=== PATIENT | female | born 1930 | race Caucasian/White ===

== ENCOUNTER 2018-09-28 10:55 | Inpatient (IN) | payer MEDICARE ==
--- NOTE | 2018-09-28 11:10 | ED ---
Complex/Multi-Sys Presentation - HPI Summary HPI Summary: 88 year old F brought in by ambulance presenting to [facility] with a chief complaint of increasing shortness of breath since one week ago, worse since this morning. The patient rates the pain 0/10 in severity. Symptoms aggravated by bending over to clean. Symptoms alleviated by nothing. Patient has cough with green sputum production. Patient reports dysuria that comes and goes and she urinates quite often. Patient denies chest pain, nausea, vomiting, abdominal pain. Per nurse Jillian,who received EMS report, patient complains of increasing generalized weakness, decreased appetite, dizziness, and increased odor to urine. Per Jillian, patient was at [facility] last week for general illness. Per Jillian, patient's O2 stats were in the 70s when EMS arrived at pt's home and patient was given O2 via non-rebreather in ambulance. History of present illness is limited, as it is provided by patient who has dementia. Patient's immediate recall seems intact upon evaluation but patient has obvious dementia. Patient states "I think my father is still alive" when asked about family history. Pt is on Aricept and Namenda for dementia. Per daughter, Rex, who lives with pt, and was interviewed later when she presented to the ED, patient was given lactulose for constipation by her PCP. Daughter gave patient lactulose four days ago, and two days ago. Daughter believes that patient must have taken up to 40 ounces of lactulose between two days ago and now when she found the lactulose bottle this am. Daughter found patient sitting in stools this morning. Patient has had multiple stools while in ED. Daughter states that pt is O2 dependent with her COPD and wears 2L NC O2 constantly. Daughter states EMS found pt hypoxic this am because she was not wearing her O2. Daughter does not know if Pt is a CO2 retainer, has not been told that pt is. Daughter states pt has no hx CHF. Pt has HTN, hypothyroid and did not take her meds this am per daughter. Pt also has chronic back pain, and has an implanted stimulator, "that doesn't work " per daughter. Pt is on methadone for the chronic pain. Vital signs while in room: HR 80 bpm, BP 152/104 and 188/82. Home Medications Medication Instructions Recorded Confirmed Type Aspirin TAB* [Aspirin 325 MG TAB*] 325 mg PO DAILY 09/28/18 09/28/18 History Docusate CAP* [Colace Cap*] 100 mg PO BID 09/28/18 09/28/18 History Donepezil TAB* [Aricept 5 MG TAB*] 10 mg PO DAILY 09/28/18 09/28/18 History Levothyroxine TAB* [Synthroid TAB*] 88 mcg PO 0800 09/28/18 09/28/18 History Memantine TAB* [Namenda TAB*] 10 mg PO BID 09/28/18 09/28/18 History Methadone TAB* [Dolophine TAB*] 10 mg PO BID 09/28/18 09/28/18 History amLODIPine TAB* [Norvasc 5 mg TAB*] 10 mg PO DAILY 09/28/18 09/28/18 History - History Of Current Complaint Chief Complaint: EDWeakness Time Seen by Provider: 09/28/18 11:01 Hx Obtained From: Patient, Family/Director Of Architecture - daughter, EMS - via charge nurse, Jillian, Other: - Nurse Jillian reports EMS report to me Onset/Duration: Gradual Onset, Lasting Weeks - 1, Still Present, Worse Since - this morning Timing: Constant Severity Currently: Moderate Severity Initially: Moderate Location: Negative - pain Aggravating Factor(s): Nothing Alleviating Factor(s): Nothing Associated Signs And Symptoms: Positive: Weakness, SOB, Cough, Diarrhea - this am, Dysuria, Decreased Oral Intake. Negative: Chest Pain, Nausea, Vomiting, Abdominal Pain Related History: Recent Hospitalization - [facility] - Allergies/Home Medications Allergies/Adverse Reactions: Allergies Allergy/AdvReac Type Severity Reaction Status Date / Time doxycycline Allergy Unknown Verified 09/28/18 11:44 Reaction Details erythromycin base Allergy Unknown Verified 09/28/18 11:44 [From Erythrocin] Reaction Details ropinirole [From Requip] Allergy Agitation Verified 09/28/18 11:44 Sulfa (Sulfonamide Allergy Unknown Verified 09/28/18 11:44 Antibiotics) Reaction Details Home Medications: Home Medications Aspirin TAB* [Aspirin 325 MG TAB*] 325 mg PO DAILY 09/28/18 [History Confirmed 09/28/18] Docusate CAP* [Colace Cap*] 100 mg PO BID 09/28/18 [History Confirmed 09/28/18] Donepezil TAB* [Aricept 5 MG TAB*] 10 mg PO DAILY 09/28/18 [History Confirmed ] Levothyroxine TAB* [Synthroid TAB*] 88 mcg PO 0800 09/28/18 [History Confirmed 09/28/18] Memantine TAB* [Namenda TAB*] 10 mg PO BID 09/28/18 [History Confirmed 09/28/18] Methadone TAB* [Dolophine TAB*] 10 mg PO BID 09/28/18 [History Confirmed ] amLODIPine TAB* [Norvasc 5 mg TAB*] 10 mg PO DAILY 09/28/18 [History Confirmed 09/28/18] guaiFENesin ER TAB [Mucinex*] 60 mg PO DAILY 09/28/18 [History Confirmed ] traZODone TAB* [Desyrel TAB*] 50 mg PO BEDTIME 09/28/18 [History Confirmed 09/28] PMH/Surg Hx/FS Hx/Imm Hx Previously Healthy: No Endocrine/Hematology History: Reports: Hx Thyroid Disease Denies: Hx Sickle Cell Disease Respiratory History: Reports: Hx Chronic Obstructive Pulmonary Disease (COPD) GI History: Reports: Hx Hiatal Hernia Musculoskeletal History: Reports: Hx Arthritis, Hx Back Problems, Other Musculoskeletal History - spinal stenosis Sensory History: Reports: Hx Hearing Aid EENT History: Reports: Hx Hearing Problem Neurological History: Reports: Hx Dementia, Other Neuro Impairments/Disorders - Left back implanted neurovascular stimulator- off at this time Psychiatric History: Reports: Hx Depression - Cancer History Cancer Type, 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 Negative: Abdominal Pain, Vomiting, Nausea Positive: dysuria, frequency Musculoskeletal: Negative Skin: Negative Positive: Weakness - generalized Psychological: Normal All Other Systems Reviewed And Are Negative: Yes Physical Exam - Summary Physical Exam Summary: Appearance: Ill-appearing, no pain distress, well-nourished Skin: Warm, color reflects adequate perfusion, dry Head: Normal Head/Face inspection, atraumatic Eyes: Conjunctiva clear, EOMI ENT: Edentulous Neck: Supple, no nodes, no JVD Respiratory: Lungs clear, normal breath sounds, no respiratory distress Cardio: RRR, No murmur, pulses normal, brisk capillary refill Abdomen: Soft, nontender. Patient wears adult briefs. Patient reports suprapubic generalized pain upon palpation Bowel sounds: Present Musculoskeletal: Strength Intact/ROM intact, no calf tenderness, no edema. Back: Left lateral lumbar area has a device implanted Psychological: Normal Neuro: Alert, muscle tone normal, no focal deficit Triage Information Reviewed: Yes Vital Signs On Initial Exam: Initial Vitals Temp Pulse Resp BP Pulse Ox 98.5 F 78 19 152/104 93 09/28/18 11:00 09/28/18 11:00 09/28/18 11:00 09/28/18 11:00 09/28/18 11:00 Vital Signs Reviewed: Yes Diagnostics - Vital Signs Vital Signs Temp Pulse Resp BP Pulse Ox 09/28/18 11:00 98.5 F 78 19 152/104 93 - Laboratory Result Diagrams: 09/29/18 06:35 09/29/18 06:35 Lab Statement: Any lab studies that have been ordered have been reviewed, and results considered in the medical decision making process. - Radiology CXR Radiology Interpretation Completed By: Radiologist Summary of Radiographic Findings: COPD. ED physician has reviewed this report. - EKG 1214 Cardiac Rate: NL - 84 BPM EKG Rhythm: Sinus Rhythm ST Segment: Non-Specific Ectopy: None EKG Comparison: No Significant Change - Compared to 05/09/15 Summary of EKG Findings: Nml AV/IV CT, nml QTc, left axis, LVH. No acute changes. Re-Evaluation - Re-Evaluation First Eval Re-Evaluation Time: 14:53 Comment: Patient has no C/O. Has had multiple episodes of stool incontinence and diarrhea. Sent for stool studies. HR 72 BPM, BP 169/82. The daughter is tearful. She is upset with wait time and "poking and proding her mother." She doesn't want patient's information told to other family members. Patient's daughter Rex, is taken to registration to update demographic information. Registration is unable to put note that family members cannot be given patient information. Complex Multi-Symp Course/Dx Course Of Treatment: Reviewed nurses note. Patient medications reviewed this visit. Allergies noted. High blood pressure noted. CXR shows COPD, no evidence of infiltrate of CHF. EKG shows SR, no changes compared to prior on 05/09/15. Respiratory therapy unable to obtain ABG. Bloodwork remarkable for lactic acid 2.5. Urinalysis remarkable for UTI. Aware of lactic acid 2.5 at 13:06. Patient meets SIRS criteria with tachypnea, elevated white count, and elevated lactic acid. Blood cultures were sent. Patient was given ceftriaxone for presumed urinary source and possible respiratory source. Patient is allergic to erythromycin so will not give azithromycin. Patient was not given 30 cc/kg IV fluids for possible sepsis due to elevated BNP (653) and hypertension. Spoke with Dr. Pressley, hospitalist, regarding admission. Dr. Pressley agrees to admit patient. Patient and patient's daughter are agreeable to this plan. - Diagnoses Differential Diagnoses/HQI/PQRI: Metabolic Abnormality, Sepsis, Urinary Tract Infection, Other - pneumonia, CHF Provider Diagnoses: Hypoxia, COPD (chronic obstructive pulmonary disease), Hypertension, poor control, Dementia, Shortness of breath, UTI (urinary tract infection), Sepsis, CHF (congestive heart failure), Hypomagnesemia, Diarrhea - Physician Notifications Discussed Care Of Patient With: Param Pressley Time Discussed With Above Provider: 15:05 Instructed by Provider To: Other - Dr. Pressley, hospitalist, agrees to admit patient. - Critical Care Time Critical Care Time: 30-74 min - 30 minutes Discharge - Sign-Out/Discharge Documenting (check all that apply): Patient Departure - Admit Patient Received Moderate/Deep Sedation with Procedure: No - Discharge Plan Condition: Stable Disposition: ADMITTED TO [facility] - Billing Disposition and Condition Condition: STABLE Disposition: Admitted to [facility] - Attestation Statements Document Initiated by Scribe: Yes Documenting Scribe: Rocio Song Provider For Whom Scribe is Documenting (Include Credential): Sonya Hairston MD Scribe Attestation: I, Rocio Song, scribed for Sonya Hairston MD on 09/29/18 at 2022. Scribe Documentation Reviewed: Yes Provider Attestation: The documentation as recorded by the jaylenibe, Rocio Song accurately reflects the service I personally performed and the decisions made by me, Sonya Hairston MD Status of Scribe Document: Viewed
[2018-09-28 12:37] LABS: ABS Basophils 0 10^3/ul (0-0.2); ABS Eosinophils 0 10^3/ul (0-0.6); ABS Lymphocytes 0.6 10^3/ul (1.0-4.8); ABS Monocytes 0.7 10^3/ul (0-0.8); ABS Nucleated RBC 0 10^3/ul; Eosinophil % 0 %; Hematocrit 40 % (35-47); Hemoglobin 13.2 g/dl (12.0-16.0); Lymphocyte % 3.7 %; Mean Corpuscular HGB Conc 33 g/dl (31-36); Mean Corpuscular Hemoglobin 28 pg (27-31); Mean Corpuscular Volume 86 fL (80-97); Mean Platelet Volume 8.4 fL (7.4-10.4); Nucleated Red Blood Cells % 0; Platelet Count 244 10^3/ul (150-450); Red Blood Count 4.66 10^6/ul (4.00-5.40); Red Cell Distribution Width 15 % (10.5-15); White Blood Count 17.4 10^3/ul (3.5-10.8)
[2018-09-28 12:51] LABS: Activated Partial Thrombo Time 30.6 seconds (26.0-36.3); INR 1.14 (0.77-1.02)
[2018-09-28 12:55] LABS: Albumin 4.3 g/dL (3.2-5.2); Albumin/Globulin Ratio 1.5 (1-3); BUN/Creatinine Ratio 30.2 (8-20); C Reactive Protein 6.21 mg/L (<8.01); Calcium 9.7 mg/dL (8.6-10.3); EGFR African American 108.4 (>60); EGFR Non-African American 89.6 (>60); Globulin 2.9 g/dL (2-4); Magnesium 1.7 mg/dL (1.9-2.7); Total Bilirubin 0.9 mg/dL (0.2-1.0); Total Protein 7.2 g/dL (6.4-8.9)
[2018-09-28 13:17] LABS: TSH (Thyroid Stimulating Horm) 0.72 mcIU/mL (0.34-5.60)
[2018-09-28 13:55] LABS: Urine Appearance Cloudy; Urine Bacteria Absent (Absent); Urine Bilirubin Negative (Negative); Urine Blood 1+ (Negative); Urine Color Amber; Urine Glucose Negative (Negative); Urine Ketones Trace (Negative); Urine Nitrite Negative (Negative); Urine Protein 1+(30 mg/dL) (Negative); Urine Red Blood Cell Trace(0-2/hpf) (Absent); Urine Specific Gravity 1.016 (1.010-1.030); Urine Squamous Epithelial Cell Present (Absent); Urine Urobilinogen Positive (Negative); Urine White Blood Cell 2+(11-20/hpf) (Absent)
[2018-09-28] MEDS ORDERED: cefTRIAXone(*) 1 GM in NS 0.9% 50 ML* 50 ML IVPB ONE ×2 (15:10→17:00)
[2018-09-28] MEDS ORDERED: Magnesium Sulfate IV* 3 GM in NS 0.9% 100 ML* 100 ML IVPB ONE (16:33)
[2018-09-28] MEDS ORDERED: NS 0.9% 1000 ML** 1,000 ML IV.FLUID IV ONE (17:20)
[2018-09-28] MEDS ORDERED: NS 0.9% 1000 ML** 1,000 ML IV SCH (17:30)
[2018-09-28] MEDS: amLODIPine TAB* 5 MG PO SCH (18:17)
[2018-09-28] MEDS ORDERED: hydrALAZINE IV* 20 MG/ML VIAL IV SLOW PU PRN (19:37)
--- NOTE | 2018-09-28 20:07 | HP ---
CC: Dr. Danny Jenkins * HISTORY AND PHYSICAL: DATE OF ADMISSION: 09/28/18 PRIMARY CARE PROVIDER: Dr. Danny Jenkins. ATTENDING PHYSICIAN: Dr. Param Pressley * (dictated by Mony Brewer NP) CHIEF COMPLAINT: Diarrhea and weakness. HISTORY OF PRESENT ILLNESS: Ms. Armando is an 88-year-old female with past medical history significant for dementia, COPD, arthritis, depression, lymphoma , hypertension, hypothyroidism, chronic pain. Most of this history is obtained through her daughter due to the patient's advanced dementia. According to the patient, she has been having shortness of breath for 1 week, worsening this morning. She reports burning when urinating. She is unsure when this started. She denies any fevers, chills, chest pain, abdominal pain. She has chronic back pain. According to the patient's daughter, she was seen approximately 2 weeks ago at [facility]. She has been noted to have increased weakness, which her daughter describes as difficulty walking as she is walking slower. She has had no recent falls. She has also noticed a slow progression of her confusion. Her daughter reports that the first time she mentioned dysuria was this morning. She states she had been having constipation and she gave her 2 doses of lactulose over the last couple of days, but found that her mother had gotten hold of the bottle and had taken approximately 40 ounces. She states that her mother has shortness of breath with exertion at baseline, is on oxygen at 2 L via nasal cannula. She also reports that her urine is foul smelling. She called EMS and the first responders reportedly found her to be hypoxic with oxygen saturations in the 70s. I do not see any documentation of this. Per EMS report, she had a nonrebreather and when she was found to be oxygenating satisfactorily, that was discontinued. She has intermittent cough that is chronic. She takes Mucinex for this in the morning. There are no reports of abdominal pain, nausea, vomiting. She has diarrhea starting today. She was brought to the emergency room by EMS for further evaluation. While in the emergency room, she had labs showing a white blood cell count of 17.4 and a urinalysis suggestive of a possible UTI. She had a chest x-ray showing COPD, no acute cardiopulmonary disease. She had an EKG without significant findings. Her magnesium was 1.7. She had a C. diff that was negative, a fecal lactoferrin that was positive. Stool culture is pending. An elevated BNP of 653. Troponin of 0.00. Lactic acid of 2.5. She was afebrile. She was not tachycardic. Some intermittent tachypnea. Was noted to mildly hypertensive with systolic blood pressures in the 150s to 190s. She was referred to the hospitalist for admission. PAST MEDICAL HISTORY: 1. Dementia. 2. COPD. 3. Arthritis. 4. Depression. 5. Lymphoma. 6. Hypertension. 7. Hypothyroidism. 8. Chronic pain. PAST SURGICAL HISTORY: 1. Status post neurotransmitter placement in her back. 2. Status post back surgery. 3. Status post left hip ORIF. 4. Status post angiogram. MEDICATIONS: Home medications include: 1. Methadone 10 mg oral twice daily. 2. Colace 100 mg oral twice daily. 3. Aspirin 325 mg oral daily. 4. Namenda 10 mg oral twice daily. 5. Aricept 10 mg oral daily. 6. Norvasc 10 mg oral daily. 7. Levothyroxine 88 mcg oral daily. 8. Lactulose as needed. 9. Mucinex ER 600 by mouth every morning. 10. Trazodone 50 mg by mouth at bedtime. ALLERGIES: 1. DOXYCYCLINE. 2. ERYTHROMYCIN. 3. REQUIP. 4. SULFA. FAMILY HISTORY: Daughter denies family history of coronary artery disease, diabetes. The daughter has a history of skin cancer. SOCIAL HISTORY: She is a former smoker. She quit smoking approximately 7 years ago. She had a half to 1 pack a day smoking history. Daughter is unsure of how long she smoked for. She occasionally has alcohol. She denies recreational drug use. Her daughter, Denise Kilpatrick, will be her surrogate decision maker. Denise would like for no other family members to receive information on her mother. REVIEW OF SYSTEMS: I performed an 11-point review of systems. All the pertinent positives and negatives are mentioned in the history of present illness. The remaining review of systems is negative. PHYSICAL EXAMINATION GENERAL APPEARANCE: The patient is alert, pleasant, appears to be in no acute distress. VITAL SIGNS: Temperature 98.5, heart rate 77, respiratory rate 16, O2 sat 97% on 2 L via nasal cannula, blood pressure 171/94. HEENT: Normocephalic, atraumatic. Pupils are equal, reactive to light. Extraocular movements are intact. Mucous membranes are slightly dry. NECK: Supple. There is no lymphadenopathy noted. RESPIRATORY: There is no accessory muscle use. The lungs are clear to auscultation bilateral. CARDIOVASCULAR: Regular rate and rhythm. S1, S2 present. There are no murmurs , rubs, or gallops heard. ABDOMEN: Soft, nontender, nondistended. There are bowel sounds present x4. The patient reports mild right-sided CVA tenderness and she does have suprapubic tenderness with palpation. EXTREMITIES: There is no lower extremity edema. DP and PT pulses are 1+ and symmetric. MUSCULOSKELETAL: There is no clubbing or cyanosis noted. The patient exhibits good strength in all extremities. NEUROLOGICAL: The patient is alert and oriented to person and confused. Cranial nerves II through XII are grossly intact. PSYCHOLOGICAL: The patient is calm and cooperative. SKIN: There are no rashes or abnormalities seen. DIAGNOSTIC STUDIES/LABORATORY DATA: Sodium 138, potassium 4.0, chloride 100, CO2 of 30, BUN 19, creatinine 0.63, glucose 108. Magnesium 1.7. White blood cell count 17.4, hemoglobin 13.2, hematocrit 40, and platelet count 244,000. INR 1.14. Lactic acid 2.5. Troponin 0.00. BNP 653. C. diff negative. Fecal lactoferrin positive. Stool culture pending. Urinalysis is significant for 1+ protein, trace ketones, 1+ blood, positive urobilinogen, 2+ wbc's, squamous epithelial cells present, hyaline casts present, urine ascorbic acid present. EKG shows a sinus rhythm, rate of 84 and LVH. EKG is similar with no significant changes from previous from 05/09/15. Chest x-ray from today. Radiologist's impression: COPD. IMPRESSION: Ms. Armando is an 88-year-old female with past medical history significant for dementia, chronic obstructive pulmonary disease, arthritis, depression, hyperlipidemia, hypertension, hypothyroidism, chronic back pain who presented to the emergency room with generalized weakness, foul-smelling urine. She will be admitted as an inpatient for generalized weakness, urinary tract infection. ASSESSMENT/PLAN: 1. Urinary tract infection. I suspect the patient's generalized weakness is secondary to the urinary tract infection treated with ceftriaxone. She has a white blood cell count of 17.4. She is afebrile. She is not tachycardic, although she has intermittently been tachycardic. Additionally, she intermittently has had tachypnea, qualifying her to meet systemic inflammatory response syndrome criteria. She did not receive a fluid bolus in the emergency room. I will order her a fluid bolus. This initially was held due to her blood pressure. I suspect her blood pressure is elevated in the setting of not receiving her meds, so I will give her a fluid bolus and then give her gentle IV hydration after that. She had blood cultures drawn. Urine culture is pending. 2. Hypomagnesemia. I suspect this is secondary to diarrhea. She will receive magnesium replacement. We will recheck her labs in the morning. 3. Diarrhea. I suspect this is secondary to taking too much lactulose. We are going to hold any bowel meds, give her supportive care, some gentle IV hydration. 4. Elevated BNP. She has no signs of an acute congestive heart failure exacerbation at this time and has no history of congestive heart failure. We will closely monitor her in the setting of IV fluids to make sure that she does not become fluid overloaded. 5. Chronic obstructive pulmonary disease. No signs of chronic obstructive pulmonary disease exacerbation at this time. She has no wheezing. She is not on maintenance medications. 6. Chronic hypoxic respiratory failure. She will be continued on her home supplemental oxygen of 2 L via nasal cannula. 7. Dementia. We will continue her home Namenda, Aricept, trazodone at bedtime. 8. Hypothyroidism. We will continue her home levothyroxine dosing. 9. Hypertension. Again, she has been hypertensive in the emergency room. I suspect this is secondary to her daughter reporting she has not taken medications today. We will continue her on amlodipine. 10. Fluids, electrolytes and nutrition. Regular diet. 11. Code status. Full code. 12. DVT prophylaxis. She is at high risk. Will have subcu heparin. 13. Disposition. Inpatient. TIME SPENT: Time for this admission was approximately 60 minutes, greater than half of that was spent with the patient and daughter discussing medications, past medical history, the events leading to her arrival today, performing a physical examination. The case has been reviewed with the attending, Dr. Pressley, who agrees with the plan of care. MONY BREWER, VISION REH[employer]ILITATION THERAPIST [id number]/[facility] #: [id number] [facility]
[2018-09-28] MEDS: Methadone TAB* 10 MG PO SCH (21:49)
[2018-09-28] MEDS: traZODone TAB* 50 MG TAB PO SCH (21:49)
[2018-09-28] MEDS: Heparin VIAL(*) 5000 UNITS/ML VIAL (FIVE THOUSAND) SUBCUT SCH (21:49)
[2018-09-28] MEDS: Memantine TAB* 10 MG PO SCH (21:49)
[2018-09-29] MEDS ORDERED: Hemorrhoidal OINT PR PRN (02:52)
[2018-09-29] MEDS ORDERED: HYDROcodone/ACETAMIN 5-325 MG* 1 TAB PO PRN (02:54)
[2018-09-29] MEDS ORDERED: Acetaminophen TAB* 325 MG PO PRN (06:04)
[2018-09-29] MEDS: Heparin VIAL(*) 5000 UNITS/ML VIAL (FIVE THOUSAND) SUBCUT SCH ×3 (06:05→21:29)
[2018-09-29] MEDS: Levothyroxine TAB* 88 MCG TAB PO SCH (06:05)
[2018-09-29 06:53] LABS: ABS Basophils 0.1 10^3/ul (0-0.2); ABS Eosinophils 0 10^3/ul (0-0.6); ABS Lymphocytes 0.9 10^3/ul (1.0-4.8); ABS Monocytes 0.7 10^3/ul (0-0.8); ABS Neutrophils 10.2 10^3/ul (1.5-7.7); ABS Nucleated RBC 0 10^3/ul; Eosinophil % 0.2 %; Hematocrit 35 % (35-47); Hemoglobin 11.5 g/dl (12.0-16.0); Lymphocyte % 7.5 %; Mean Corpuscular HGB Conc 33 g/dl (31-36); Mean Corpuscular Hemoglobin 29 pg (27-31); Mean Corpuscular Volume 86 fL (80-97); Mean Platelet Volume 8.3 fL (7.4-10.4); Nucleated Red Blood Cells % 0; Platelet Count 220 10^3/ul (150-450); Red Blood Count 4.01 10^6/ul (4.00-5.40); Red Cell Distribution Width 15 % (10.5-15); White Blood Count 11.9 10^3/ul (3.5-10.8)
[2018-09-29 07:14] LABS: BUN/Creatinine Ratio 26.4 (8-20); Calcium 8.8 mg/dL (8.6-10.3); EGFR African American 132.3 (>60); EGFR Non-African American 109.4 (>60); Magnesium 2.1 mg/dL (1.9-2.7); Potassium 3.4 mmol/L (3.5-5.0)
[2018-09-29] MEDS: Memantine TAB* 10 MG PO SCH ×2 (08:13→20:00)
[2018-09-29] MEDS: Methadone TAB* 10 MG PO SCH ×2 (08:13→20:00)
[2018-09-29] MEDS: amLODIPine TAB* 5 MG PO SCH (08:13)
[2018-09-29] MEDS: Aspirin TAB* 325 MG PO SCH (08:14)
[2018-09-29] MEDS: Donepezil TAB* 5 MG PO SCH (08:14)
[2018-09-29] MEDS ORDERED: Potassium Chlor TAB* 20 MEQ TAB.ER PO ONE (08:15)
[2018-09-29] MEDS ORDERED: guaiFENesin ER TAB 600 MG PO SCH (09:00)
--- NOTE | 2018-09-29 10:12 | PN ---
Subjective Date of Service: 09/29/18 Interval History: Resting in bed. Patient is not a great historian, but able engage in ROS and answer some questions well. Reports shortness of breath "depending on the weather". Reports mild improvement since admission yesterday. Reports diarrhea x2 since admission also. Denies cp, palpitations, nausea, vomiting, abd pain, dizziness, fever, chills. Objective Active Medications: Acetaminophen (Tylenol Tab*) 650 mg PO Q4H PRN PRN Reason: FEVER/HEADACHE Last Admin: 09/29/18 06:37 Dose: 650 mg Hydrocodone Bitart/Acetaminophen ([place] 5-325 Tab*) 1 tab PO Q6H PRN PRN Reason: PAIN Last Admin: 09/29/18 03:09 Dose: 1 tab Amlodipine Besylate (Norvasc Tab*) 10 mg PO DAILY [facility] Last Admin: 09/29/18 08:13 Dose: 10 mg Aspirin (Aspirin Tab*) 325 mg PO DAILY [facility] Last Admin: 09/29/18 08:14 Dose: 325 mg Donepezil HCl (Aricept Tab*) 10 mg PO DAILY [facility] Last Admin: 09/29/18 08:14 Dose: 10 mg Guaifenesin (Mucinex*) 600 mg PO DAILY [facility] Heparin Sodium (Porcine) (Heparin Vial(*)) 5,000 units SUBCUT Q8HR [facility] Last Admin: 09/29/18 06:05 Dose: 5,000 units Hydralazine HCl (Apresoline Iv*) 5 mg IV SLOW PU Q6H PRN PRN Reason: BLOOD PRESSURE Ceftriaxone Sodium 1 gm/ (Sodium Chloride) 50 mls @ 200 mls/hr IVPB Q24H [facility] Levothyroxine Sodium (Synthroid Tab*) 88 mcg PO 0600 [facility] Last Admin: 09/29/18 06:05 Dose: 88 mcg Memantine (Namenda Tab*) 10 mg PO BID [facility] Last Admin: 09/29/18 08:13 Dose: 10 mg Methadone HCl (Dolophine Tab*) 10 mg PO BID [facility] Last Admin: 09/29/18 08:13 Dose: 10 mg Phenyleph/Shark Oil/Min Oil/Petrol (Preparation H*) 1 applic [place] QID PRN PRN Reason: PRURITIS Last Admin: 09/29/18 03:09 Dose: 1 applic Trazodone HCl (Desyrel Tab*) 50 mg PO BEDTIME ALIYAH Last Admin: 09/28/18 21:49 Dose: 50 mg Vital Signs - 8 hr 09/29/18 09/29/18 09/29/18 03:09 03:24 03:59 Temperature 98.6 F Pulse Rate 73 Respiratory 24 18 Rate Blood Pressure 166/78 178/77 (mmHg) O2 Sat by Pulse 100 Oximetry 09/29/18 09/29/18 09/29/18 05:25 07:55 08:13 Temperature 98.0 F Pulse Rate 80 Respiratory 26 24 22 Rate Blood Pressure 150/67 (mmHg) O2 Sat by Pulse 99 Oximetry 09/29/18 09:29 Temperature Pulse Rate Respiratory 24 Rate Blood Pressure (mmHg) O2 Sat by Pulse Oximetry Oxygen Devices in Use Now: Nasal Cannula Appearance: Mildly dyspnic on assessment. Otherwise comfortable, NAD. Eyes: No Scleral Icterus Ears/Nose/Mouth/Throat: Clear Oropharnyx, Mucous Membranes Moist Neck: NL Appearance and Movements; NL JVP Respiratory: Symmetrical Chest Expansion and Respiratory Effort, Clear to Auscultation Cardiovascular: NL Sounds; No Murmurs; No JVD, RRR, No Edema Abdominal: NL Sounds; No Tenderness; No Distention Lymphatic: No Cervical Adenopathy Extremities: No Edema Skin: No Rash or Ulcers Neurological: NL Muscle Strength and Tone, - - Alert to self and place. Nutrition: Taking PO's Result Diagrams: 09/29/18 06:35 09/29/18 06:35 Additional Lab and Data: Laboratory Results - last 24 hr 09/28/18 09/28/18 09/28/18 12:21 12:21 12:21 WBC 17.4 H RBC 4.66 Hgb 13.2 Hct 40 MCV 86 MCH 28 MCHC 33 RDW 15 Plt Count 244 MPV 8.4 Neut % (Auto) 92.1 Lymph % (Auto) 3.7 Cloud % (Auto) 4.0 Eos % (Auto) 0 Baso % (Auto) 0.2 Absolute Neuts (auto) 16.0 H Absolute Lymphs (auto) 0.6 L Absolute Monos (auto) 0.7 Absolute Eos (auto) 0 Absolute Basos (auto) 0 Absolute Nucleated RBC 0 Nucleated RBC % 0 INR (Anticoag Therapy) 1.14 H APTT 30.6 Sodium 138 Potassium 4.0 Chloride 100 L Carbon Dioxide 30 Anion Gap 8 BUN 19 Creatinine 0.63 Est GFR ( Amer) 108.4 Est GFR (Non-Af Amer) 89.6 BUN/Creatinine Ratio 30.2 H Glucose 108 H Lactic Acid Calcium 9.7 Magnesium 1.7 L Total Bilirubin 0.90 AST 13 ALT 4 L Alkaline Phosphatase 66 Ammonia Total Creatine Kinase 78 Troponin I 0.00 C-Reactive Protein 6.21 B-Natriuretic Peptide Total Protein 7.2 Albumin 4.3 Globulin 2.9 Albumin/Globulin Ratio 1.5 TSH 0.72 Urine Color Urine Appearance Urine pH Ur Specific Mcallister Urine Protein Urine Ketones Urine Blood Urine Nitrate Urine Bilirubin Urine Urobilinogen Ur Leukocyte Esterase Urine WBC (Auto) Urine RBC (Auto) Ur Squamous Epith Cells Urine Bacteria Hyaline Casts Urine Glucose Urine Ascorbic Acid 09/28/18 09/28/18 09/28/18 12:21 12:21 13:43 WBC RBC Hgb Hct MCV MCH MCHC RDW Plt Count MPV Neut % (Auto) Lymph % (Auto) Cloud % (Auto) Eos % (Auto) Baso % (Auto) Absolute Neuts (auto) Absolute Lymphs (auto) Absolute Monos (auto) Absolute Eos (auto) Absolute Basos (auto) Absolute Nucleated RBC Nucleated RBC % INR (Anticoag Therapy) APTT Sodium Potassium Chloride Carbon Dioxide Anion Gap BUN Creatinine Est GFR ( Amer) Est GFR (Non-Af Amer) BUN/Creatinine Ratio Glucose Lactic Acid 2.5 H* Calcium Magnesium Total Bilirubin AST ALT Alkaline Phosphatase Ammonia Total Creatine Kinase Troponin I C-Reactive Protein B-Natriuretic Peptide 653 H Total Protein Albumin Globulin Albumin/Globulin Ratio TSH Urine Color Elizabeth Urine Appearance Cloudy Urine pH 6.0 Ur Specific Mcallister 1.016 Urine Protein 1+(30 mg/dl) A Urine Ketones Trace A Urine Blood 1+ A Urine Nitrate Negative Urine Bilirubin Negative Urine Urobilinogen Positive A Ur Leukocyte Esterase Negative Urine WBC (Auto) 2+(11-20/hpf) A Urine RBC (Auto) Trace(0-2/hpf) Ur Squamous Epith Cells Present A Urine Bacteria Absent Hyaline Casts Present A Urine Glucose Negative Urine Ascorbic Acid * A 09/28/18 09/28/18 09/29/18 16:11 16:11 06:35 WBC 11.9 H RBC 4.01 Hgb 11.5 L Hct 35 MCV 86 MCH 29 MCHC 33 RDW 15 Plt Count 220 MPV 8.3 Neut % (Auto) 85.4 Lymph % (Auto) 7.5 Cloud % (Auto) 6.2 Eos % (Auto) 0.2 Baso % (Auto) 0.7 Absolute Neuts (auto) 10.2 H Absolute Lymphs (auto) 0.9 L Absolute Monos (auto) 0.7 Absolute Eos (auto) 0 Absolute Basos (auto) 0.1 Absolute Nucleated RBC 0 Nucleated RBC % 0 INR (Anticoag Therapy) APTT Sodium Potassium Chloride Carbon Dioxide Anion Gap BUN Creatinine Est GFR ( Amer) Est GFR (Non-Af Amer) BUN/Creatinine Ratio Glucose Lactic Acid 1.2 Calcium Magnesium Total Bilirubin AST ALT Alkaline Phosphatase Ammonia 34 Total Creatine Kinase Troponin I C-Reactive Protein B-Natriuretic Peptide Total Protein Albumin Globulin Albumin/Globulin Ratio TSH Urine Color Urine Appearance Urine pH Ur Specific Mcallister Urine Protein Urine Ketones Urine Blood Urine Nitrate Urine Bilirubin Urine Urobilinogen Ur Leukocyte Esterase Urine WBC (Auto) Urine RBC (Auto) Ur Squamous Epith Cells Urine Bacteria Hyaline Casts Urine Glucose Urine Ascorbic Acid 09/29/18 06:35 WBC RBC Hgb Hct MCV MCH MCHC RDW Plt Count MPV Neut % (Auto) Lymph % (Auto) Cloud % (Auto) Eos % (Auto) Baso % (Auto) Absolute Neuts (auto) Absolute Lymphs (auto) Absolute Monos (auto) Absolute Eos (auto) Absolute Basos (auto) Absolute Nucleated RBC Nucleated RBC % INR (Anticoag Therapy) APTT Sodium 139 Potassium 3.4 L Chloride 102 Carbon Dioxide 30 Anion Gap 7 BUN 14 Creatinine 0.53 Est GFR ( Amer) 132.3 Est GFR (Non-Af Amer) 109.4 BUN/Creatinine Ratio 26.4 H Glucose 107 H Lactic Acid Calcium 8.8 Magnesium 2.1 Total Bilirubin AST ALT Alkaline Phosphatase Ammonia Total Creatine Kinase Troponin I C-Reactive Protein B-Natriuretic Peptide Total Protein Albumin Globulin Albumin/Globulin Ratio TSH Urine Color Urine Appearance Urine pH Ur Specific Mcallister Urine Protein Urine Ketones Urine Blood Urine Nitrate Urine Bilirubin Urine Urobilinogen Ur Leukocyte Esterase Urine WBC (Auto) Urine RBC (Auto) Ur Squamous Epith Cells Urine Bacteria Hyaline Casts Urine Glucose Urine Ascorbic Acid Microbiology and Other Data: Microbiology 09/28/18 12:27 Stool Stool Gross Appearance - Final 09/28/18 12:27 Stool C. difficile DNA Amplification - Final 027 Presumptive NEGATIVE Toxigenic C.diff NEGATIVE 09/28/18 12:27 Stool Stool Lactoferrin - Final 09/28/18 12:27 Stool Stool Occult Blood (OPAL) - Final Assess/Plan/Problems-Billing Assessment: 88 yr old female with pmh of dementia, copd, arthritis, depression, lumphoma, htn, hyporthyroid; who presented to the ED with sob, burning with urination, weakness, confusion, and constipation - Patient Problems (1) Urinary tract infection Comment: - Cont Rocephin given reported symptoms and suspicious urinalysis. - Awaiting urine cultures. (2) Weakness Comment: - 2/2 infectious process? - Physical therapy ordered. (3) Electrolyte abnormality Comment: - Mag 1.7 on admission and replaced. Today 2.1 - Potassium mildly low at 3.4. Replacement ordered - Suspected 2/2 to diarrhea - Recheck BMP tomorrow (4) SOB (shortness of breath) Comment: - Reports she uses 2 to 4 L Nasal Cannula at home. - Currently on 2L and O2 sat 99% - RR noted to be mildly elevated - Chest xray consistent with COPD - Due to elevated BNP and mild dyspnea at rest on assessment, I have ordered an echo. Last echo completed in 2014 (5) COPD (chronic obstructive pulmonary disease) Comment: - No evidence of exacerbation. Continue home O2. (6) Dementia Comment: - Continue aricept. (7) Hypothyroidism Code(s): E03.9 - HYPOTHYROIDISM, UNSPECIFIED SNOMED Code(s): 02395451 Comment: - Continue levothyroxine. - TSH 0.72 (8) DVT prophylaxis Comment: - Heparin SQ. Status and Disposition: D/C home when medically stable Attending: Denton Talbert
[2018-09-29] MEDS: guaiFENesin ER TAB 600 MG PO SCH (10:21)
--- NOTE | 2018-09-29 16:10 | ECHO ---
Patient: JAMES SIMMONS [facility] Rec#: [id number] : 1930 Date: 09/29/2018 Age: 88y Height: 170.18 cm / 67.0 in Weight: 58.97 kg / 130.0 lbs Sex: F BSA: 1.68 Room#: 401 Admit Date#: 09/28/2018 Type: Inpatient Referring: Camila Forrester Reading: Gianluca Kern MD Manager Financial Systems: Gricelda Santoyo,SEBASTIÁNCS,RDMS CC: Danny Jenkins DO Transthoracic Echocardiogram Indication: Dyspnea BP: 150/67 HR: 88 Rhythm: A-Fib Findings History: COPD, HTN, lymphoma, former smoker Technical Comments: The study quality is good. Left Ventricle: The left ventricular chamber size is normal. Moderate concentric left ventricular hypertrophy is observed. There is a prominent septal knuckle. Global left ventricular wall motion and contractility are within normal limits. There is normal left ventricular systolic function. The estimated ejection fraction is 55-60%. The assessment of diastolic function is non-diagnostic. Left Atrium: The left atrium is severely dilated. Right Ventricle: The right ventricular chamber size and systolic function are within normal limits. Right Atrium: The right atrium is moderate to severely dilated. Aortic Valve: The aortic valve leaflets are moderately thickened. There is aortic annular calcification. There is mild to moderate aortic regurgitation. There is no evidence of aortic stenosis. Mitral Valve: There is mitral annular calcification. The mitral valve leaflets are mildly thickened. There is mild mitral regurgitation. There is no evidence of mitral stenosis. Tricuspid Valve: The tricuspid valve leaflets are normal. There is moderate to severe tricuspid regurgitation. There is evidence of moderate pulmonary hypertension. Pulmonic Valve: The pulmonic valve structure is not well visualized. There is no evidence of pulmonic regurgitation. Pericardium: There is no significant pericardial effusion. Aorta: The ascending aorta is not well visualized. There is no dilatation of the aortic arch. There is mild dilatation of the aortic root. Pulmonary Artery: The main pulmonary artery is not well visualized. Venous: The inferior vena cava is dilated. There is less than 50% respiratory change in the inferior vena cava dimension. Conclusions Moderate concentric left ventricular hypertrophy is observed. Global left ventricular wall motion and contractility are within normal limits. There is normal left ventricular systolic function. The estimated ejection fraction is 55-60%. The aortic valve leaflets are moderately thickened. There is mild to moderate aortic regurgitation. There is mild mitral regurgitation. There is moderate to severe tricuspid regurgitation. There is evidence of moderate pulmonary hypertension. There is no significant pericardial effusion. Compared to study of 05/10/15, the LV function is the same. The AR is the same. The TR and pulm HTN are worse Measurements Name Value Normal Range RVIDd (AP) 2D 2.3 cm (0.9 - 2.6) RVDdMajor (2D) 2.8 cm (2.2 - 4.4) RAd ISD 4CH 6.6 cm (3.4 - 4.9) RA (A4C)W 5 cm (2.9 - 4.6) IVSd (2D) 2.1 cm (0.6 - 1) LVPWd (2D) 1.5 cm (0.6 - 1) LVIDd (2D) 3.3 cm (3.6 - 5.4) LVIDs (2D) 1.9 cm - LV FS (2D) 41 % (25 - 45) Aortic Annulus 2.1 cm (1.4 - 2.6) Ao root diameter (2D) 4.1 cm (2.1 - 3.5) Aortic arch 2.9 cm (1.8 - 3.4) LA dimension (AP) 2D 4.2 cm (2.3 - 3.8) LAd ISD 4CH 7.1 cm (2.9 - 5.3) LA ISD 4CH W 5.8 cm (2.5 - 4.5) Name Value Normal Range LA ESV SP 4CH (A/L) 154.96 ml - LA ESV SP 2CH (A/L) 173.95 ml - LA ESV BP (A/L) 167.27 ml - LA ESV BP (A/L) index 100 ml/m2 - LA ESV SP 4CH (MOD) 147.81 ml - LA ESV SP 2CH (MOD) 164.54 ml - Name Value Normal Range MV E-wave Vmax 1.3 m/sec - MV deceleration time 174 msec - LV lateral e' Vmax 0.08 m/sec - LV E:e' lateral ratio 16 ratio - Name Value Normal Range AV Vmax 1.5 m/sec - AV peak gradient 9 mmHg - LVOT Vmax 1.1 m/sec - LVOT peak gradient 5 mmHg - AR PHT 543.98 msec - AR peak gradient 75.04 mmHg - CARIN Vmax 0.4 m/sec - Name Value Normal Range MV Vmax 1.3 m/sec - MV VTI 21 cm - MV peak gradient 7 mmHg - MV mean gradient 2.3 mmHg - MV PHT 56 msec - MVA (PHT) 4 cm2 - Name Value Normal Range TR Vmax 2.8 m/sec - TR peak gradient 31 mmHg - RAP 15 mmHg - RVSP 46 mmHg - IVC diameter 3.1 cm - Name Value Normal Range PV Vmax 0.7 m/sec - PV peak gradient 2 mmHg -
[2018-09-29] MEDS ORDERED: cefTRIAXone(*) 1 GM in NS 0.9% 50 ML* 50 ML IVPB SCH (17:00)
[2018-09-29] MEDS: traZODone TAB* 50 MG TAB PO SCH (20:00)
[2018-09-30] MEDS: Heparin VIAL(*) 5000 UNITS/ML VIAL (FIVE THOUSAND) SUBCUT SCH ×3 (05:26→21:22)
[2018-09-30] MEDS: Levothyroxine TAB* 88 MCG TAB PO SCH (05:26)
[2018-09-30 06:09] LABS: ABS Basophils 0.1 10^3/ul (0-0.2); ABS Eosinophils 0.3 10^3/ul (0-0.6); ABS Lymphocytes 1.6 10^3/ul (1.0-4.8); ABS Monocytes 0.7 10^3/ul (0-0.8); ABS Neutrophils 7.1 10^3/ul (1.5-7.7); ABS Nucleated RBC 0 10^3/ul; Hematocrit 34 % (35-47); Hemoglobin 11.3 g/dl (12.0-16.0); Lymphocyte % 16.1 %; Mean Corpuscular HGB Conc 34 g/dl (31-36); Mean Corpuscular Hemoglobin 29 pg (27-31); Mean Corpuscular Volume 86 fL (80-97); Nucleated Red Blood Cells % 0; Platelet Count 208 10^3/ul (150-450); Red Blood Count 3.91 10^6/ul (4.00-5.40); Red Cell Distribution Width 15 % (10.5-15); White Blood Count 9.7 10^3/ul (3.5-10.8)
[2018-09-30 06:27] LABS: BUN/Creatinine Ratio 34.6 (8-20); Calcium 8.8 mg/dL (8.6-10.3); EGFR African American 135.3 (>60); EGFR Non-African American 111.8 (>60); Magnesium 1.9 mg/dL (1.9-2.7); Potassium 4.1 mmol/L (3.5-5.0)
[2018-09-30] MEDS ORDERED: Magnesium Sulfate 2 GM IV* 2 GM/50 ML BAG IVPB ONE (08:21)
[2018-09-30] MEDS: Methadone TAB* 10 MG PO SCH ×2 (09:45→20:20)
[2018-09-30] MEDS: guaiFENesin ER TAB 600 MG PO SCH (09:46)
[2018-09-30] MEDS: Aspirin TAB* 325 MG PO SCH (09:46)
[2018-09-30] MEDS: Memantine TAB* 10 MG PO SCH ×2 (09:46→20:20)
[2018-09-30] MEDS: amLODIPine TAB* 5 MG PO SCH (09:46)
[2018-09-30] MEDS: Donepezil TAB* 5 MG PO SCH (09:46)
--- NOTE | 2018-09-30 15:09 | PN ---
Subjective Date of Service: 09/30/18 Interval History: Resting in bed on assessment. Reports she feels a little better each day. Currently denies shortness of breath, reports at her baseline her sob will increase and decrease with weather changes. Patient reports she wears supplemental O2 at home. Denies urinary symptoms. Denies chest pain, palpitations, nausea, vomiting, fever, chills. Objective Active Medications: Acetaminophen (Tylenol Tab*) 650 mg PO Q4H PRN PRN Reason: FEVER/HEADACHE Last Admin: 09/29/18 06:37 Dose: 650 mg Hydrocodone Bitart/Acetaminophen ([place] 5-325 Tab*) 1 tab PO Q6H PRN PRN Reason: PAIN Last Admin: 09/29/18 03:09 Dose: 1 tab Amlodipine Besylate (Norvasc Tab*) 10 mg PO DAILY [facility] Last Admin: 09/30/18 09:46 Dose: 10 mg Amoxicillin/Clavulanate Potassium (Augmentin Tab*) 875 mg PO BID [facility] Aspirin (Aspirin Tab*) 325 mg PO DAILY [facility] Last Admin: 09/30/18 09:46 Dose: 325 mg Donepezil HCl (Aricept Tab*) 10 mg PO DAILY [facility] Last Admin: 09/30/18 09:46 Dose: 10 mg Guaifenesin (Mucinex*) 600 mg PO DAILY [facility] Last Admin: 09/30/18 09:46 Dose: 600 mg Heparin Sodium (Porcine) (Heparin Vial(*)) 5,000 units SUBCUT Q8HR [facility] Last Admin: 09/30/18 13:53 Dose: 5,000 units Hydralazine HCl (Apresoline Iv*) 5 mg IV SLOW PU Q6H PRN PRN Reason: BLOOD PRESSURE Levothyroxine Sodium (Synthroid Tab*) 88 mcg PO 0600 [facility] Last Admin: 09/30/18 05:26 Dose: 88 mcg Memantine (Namenda Tab*) 10 mg PO BID [facility] Last Admin: 09/30/18 09:46 Dose: 10 mg Methadone HCl (Dolophine Tab*) 10 mg PO BID [facility] Last Admin: 09/30/18 09:45 Dose: 10 mg Phenyleph/Shark Oil/Min Oil/Petrol (Preparation H*) 1 applic [place] QID PRN PRN Reason: PRURITIS Last Admin: 09/29/18 03:09 Dose: 1 applic Trazodone HCl (Desyrel Tab*) 50 mg PO BEDTIME ALIYAH Last Admin: 09/29/18 20:00 Dose: 50 mg Vital Signs - 8 hr 09/30/18 09/30/18 09/30/18 07:51 08:00 09:45 Temperature 97.2 F Pulse Rate 67 Respiratory 20 16 16 Rate Blood Pressure 159/67 (mmHg) O2 Sat by Pulse 100 Oximetry 09/30/18 11:15 Temperature Pulse Rate Respiratory 16 Rate Blood Pressure (mmHg) O2 Sat by Pulse Oximetry Oxygen Devices in Use Now: Nasal Cannula Appearance: Comfortable, NAD Eyes: No Scleral Icterus Ears/Nose/Mouth/Throat: Clear Oropharnyx, Mucous Membranes Moist Neck: NL Appearance and Movements; NL JVP Respiratory: Symmetrical Chest Expansion and Respiratory Effort, Clear to Auscultation Cardiovascular: NL Sounds; No Murmurs; No JVD, RRR, No Edema Abdominal: NL Sounds; No Tenderness; No Distention Lymphatic: No Cervical Adenopathy Extremities: No Edema Skin: No Rash or Ulcers Neurological: Alert and Oriented x 3, NL Muscle Strength and Tone Result Diagrams: 09/30/18 06:04 09/30/18 06:04 Additional Lab and Data: Laboratory Results - last 24 hr 09/30/18 09/30/18 09/30/18 06:04 06:04 06:04 WBC 9.7 RBC 3.91 L Hgb 11.3 L Hct 34 L MCV 86 MCH 29 MCHC 34 RDW 15 Plt Count 208 MPV 8.0 Neut % (Auto) 72.5 Lymph % (Auto) 16.1 [place] % (Auto) 7.1 Eos % (Auto) 3.0 Baso % (Auto) 1.3 Absolute Neuts (auto) 7.1 Absolute Lymphs (auto) 1.6 Absolute Monos (auto) 0.7 Absolute Eos (auto) 0.3 Absolute Basos (auto) 0.1 Absolute Nucleated RBC 0 Nucleated RBC % 0 Sodium 137 Potassium 4.1 Chloride 102 Carbon Dioxide 30 Anion Gap 5 BUN 18 Creatinine 0.52 Est GFR ( Amer) 135.3 Est GFR (Non-Af Amer) 111.8 BUN/Creatinine Ratio 34.6 H Glucose 94 Calcium 8.8 Magnesium 1.9 B-Natriuretic Peptide 698 H Microbiology and Other Data: Microbiology 09/28/18 14:36 Blood Venous Aerobic Blood Culture - Preliminary No Growth Day 2 09/28/18 14:36 Blood Venous Anaerobic Blood Culture - Preliminary No Growth Day 2 09/28/18 12:21 Blood Venous Aerobic Blood Culture - Preliminary No Growth Day 2 09/28/18 12:21 Blood Venous Anaerobic Blood Culture - Preliminary No Growth Day 2 09/28/18 12:27 Stool Stool Culture - Final 09/28/18 12:27 Stool Stool Gross Appearance - Final 09/28/18 12:27 Stool Shiga Toxin I & II - Final Negative Shiga Toxin 1 & 2 09/28/18 12:27 Stool C. difficile DNA Amplification - Final 027 Presumptive NEGATIVE Toxigenic C.diff NEGATIVE 09/28/18 12:27 Stool Stool Lactoferrin - Final 09/28/18 12:27 Stool Stool Occult Blood (OPAL) - Final 09/28/18 13:43 Urine Urine Culture - Preliminary Aerococcus Urinae Enterococcus Faecalis Assess/Plan/Problems-Billing Assessment: 88 yr old female with pmh of dementia, copd, arthritis, depression, lumphoma, htn, hyporthyroid; who presented to the ED with sob, burning with urination, weakness, confusion, and constipation - Patient Problems (1) Urinary tract infection Comment: - Currently on Rocephin due to reported symptoms and suspicious urinalysis. - Urine cultures revealed Aerococcus Urinae and Enterococcus Faecalis - Will stop Rocephin and start Augmentin PO this evening in preparation for discharge (2) Weakness Comment: - 2/2 infectious process - Physical therapy involved (3) Electrolyte abnormality Comment: - Mag low on admission and repleted. Today 1.9; additional Mag ordered - Potassium wnl at 4.1 - Suspected 2/2 to diarrhea (4) SOB (shortness of breath) Comment: - Reports she uses 2 to 4 L Nasal Cannula at home. - Currently on 2L and O2 sat 99% - RR wnl - Chest xray consistent with COPD - Echo revealed EF of 55% to 60%, valvular disease, left ventricular hypertrophy. Compared to study 2015 LV function and AR is the same. TR and puml htn is worse. Patient should follow up with core machine operator as outpatient after discharge (5) COPD (chronic obstructive pulmonary disease) Comment: - No evidence of exacerbation. Continue home O2. (6) Dementia Comment: - Continue aricept. (7) Hypothyroidism Code(s): E03.9 - HYPOTHYROIDISM, UNSPECIFIED SNOMED Code(s): 83493385 Comment: - Continue levothyroxine. - TSH 0.72 (8) DVT prophylaxis Comment: - Heparin SQ. Status and Disposition: D/C home when medically stable Attending: Param Pressley
[2018-09-30] MEDS: Amoxicillin/Clavulanate TAB* 875 MG PO SCH (20:20)
[2018-09-30] MEDS: traZODone TAB* 50 MG TAB PO SCH (20:20)
[2018-10-01] MEDS: Levothyroxine TAB* 88 MCG TAB PO SCH (06:01)
[2018-10-01] MEDS: Heparin VIAL(*) 5000 UNITS/ML VIAL (FIVE THOUSAND) SUBCUT SCH ×2 (06:03→13:34)
[2018-10-01] MEDS: Methadone TAB* 10 MG PO SCH (10:01)
[2018-10-01] MEDS: amLODIPine TAB* 5 MG PO SCH (10:01)
[2018-10-01] MEDS: Donepezil TAB* 5 MG PO SCH (10:01)
[2018-10-01] MEDS: Aspirin TAB* 325 MG PO SCH (10:02)
[2018-10-01] MEDS: guaiFENesin ER TAB 600 MG PO SCH (10:02)
[2018-10-01] MEDS: Memantine TAB* 10 MG PO SCH (10:02)
[2018-10-01] MEDS: Amoxicillin/Clavulanate TAB* 875 MG PO SCH (10:02)
--- NOTE | 2018-10-01 14:17 | DS ---
CC: Dr. Danny Jenkins * DATE OF ADMISSION: 09/28/2018. DATE OF DISCHARGE: 10/01/2018. PRIMARY CARE PHYSICIAN: Dr. Danny Jenkins. ATTENDING PHYSICIAN: Dr. Tyrone Man * (dictated by Leyda Mayo NP). PRIMARY DIAGNOSES: 1. UTI. 2. Hypomagnesia. 3. Diarrhea. 4. Elevated BNP. SECONDARY DIAGNOSES: 1. COPD. 2. Dementia. 3. Arthritis. 4. Depression. 5. Lymphoma. 6. Hypertension. 7. Hypothyroid. 8. Chronic pain. CONSULTATIONS WHILE IN THE HOSPITAL: No consultations. PROCEDURES WHILE IN THE HOSPITAL: No procedures. IMAGING WHILE IN THE HOSPITAL: 1. Chest x-ray: Impression: COPD. 2. EKG: Impression: Sinus rhythm with a rate of 84 and LVH. EKG is similar to previous with no significant changes from 05/09/2015. 3. Transthoracic echocardiogram: Impression: Moderate concentric left ventricular hypertrophy is observed. Global left ventricular wall motion and contractility are within normal limits. Normal left ventricular systolic function. Estimated ejection fraction is 55 to 60 percent. Aortic valve leaflets are moderately thickened. Mild to moderate aortic regurgitation. Mild mitral regurgitation. Moderate to severe tricuspid regurgitation. Evidence of moderate pulmonary hypertension. No significant pericardial effusion. Compared to the study of 05/10/2015, the LV function is the same. The AR is the same. The TR and pulmonary hypertension are worse. DISCHARGE HOME MEDICATIONS: New home medications: 1. Augmentin 875 mg p.o. b.i.d. times 4 more days. This will include tonight' s evening dose and twice a day dosing for the next 3 days following. Continued home medications: 1. Methadone 10 mg orally twice a day. 2. Colace 100 mg orally twice a day. 3. Aspirin 325 mg orally daily. 4. Namenda 10 mg orally twice a day. 5. Aricept 10 mg orally daily. 6. Norvasc 10 mg orally daily. 7. Levothyroxine 88 mcg orally daily. 8. Lactulose 30 ml as needed. 9. Mucinex ER 600 mg by mouth every morning. 10. Trazodone 50 mg by mouth at bedtime. Discontinued home medications: No home medications discontinued. Changed home medications: No home medications were changed. HISTORY OF PRESENT ILLNESS/HOSPITAL COURSE: Ms. Armando is a 70-year-old female with a past medical history significant for dementia, COPD, arthritis, depression, lymphoma, hypertension, hypothyroid, and chronic pain who presented to the emergency room with her daughter on 09/28/2018 due to shortness of breath times one week and burning with urination. For complete details of events leading up to her presentation in the emergency room, please see history and physical dictated by Breanne Boyd on 09/28/2018. In short, the patient was seen at [facility] two weeks prior to her presentation to [facility] Emergency Room due to progressive weakness. In addition, the daughter had mentioned that she had noticed a slow progression in her confusion. She also had been complaining of constipation over the past several days and had gotten ahold of a bottle of Lactulose and drank approximately 40 ounces. The daughter was the main historian, reporting that the patient's shortness of breath is her baseline. The daughter reports that her urine had been foul smelling. While in the emergency room, the patient was noted to have an elevated white count and a urinalysis suggestive of a UTI. In addition, her magnesium was 1.7. Therefore, she was referred to the Hospitalist team for admission. During her hospital stay, the patient was admitted to the Medical floor. She received Ceftriaxone IV. Also during her stay, she did receive IV fluid hydration. She also received repletion of her hypomagnesia which we suspect was secondary to diarrhea. We suspect the diarrhea is secondary to taking too much Lactulose. The patient was also noted to have an elevated BNP; therefore, an echo was obtained as mentioned above. The patient is not currently in acute congestive heart failure exacerbation, but should follow-up with her primary care provider and possibly refer to Cardiology given increased severity and tricuspid regurgitation and pulmonary hypertension. The patient has improved during his hospital stay. She no longer has an elevated white count. She has remained afebrile. Heart rates have been within normal limits and she is oxygenating well on her baseline 2 liters nasal cannula. She was also seen by Physical Therapy who also believes that the patient is at her baseline. The patient is stable for discharge today to home with her daughter. REVIEW OF SYSTEMS: The patient denies dysuria, increase in frequency, incontinence, shortness of breath, chest pain, palpations, nausea, vomiting, and abdominal pain. Twelve point review of systems was completed and all others were negative. PHYSICAL EXAMINATION: General: Ms. Rt is an 88-year-old female who is resting in bed, in no acute distress, appears stated age. Vital signs: Temperature 97.9, heart rate 81, respiratory rate 16, O2 saturation 100 percent on 2 liters, blood pressure 158/79. HEENT: EOM's intact. PERRLA. Oral mucosal is moist without lesions. Neck: Supple, no lymphadenopathy. Cardiac: S1, S2 present. Regular rate and rhythm. No murmurs, rubs, or gallops. Respiratory: Lung sounds are clear to auscultation. No wheezes, rubs, or gallops. Good aeration. Abdomen: Soft, nontender. Bowel sounds times four. Extremities: No edema. No pain or deformities. No clubbing or cyanosis. Skin : Skin is intact. LABORATORY DATA: WBC 9.7, hemoglobin 11.3, hematocrit 34, platelet 208; sodium 137, potassium 4.1, chloride 102, carbon dioxide 30, BUN 18, creatinine 0.52, glucose 94, magnesium 1.9, BNP 698. DISCHARGE PLAN/FOLLOW-UP: 1. UTI: As previously mentioned, the patient received three days of Ceftriaxone while an inpatient. She will receive her first dose of Augmentin this morning. The patient will need to complete this evenings dose and then 875 mg by mouth twice a day for the next three days for a total of seven days treatment. 2. Weakness: The patient initially admitted with experienced weakness. I suspect this is secondary to an infectious process. Per Physical Therapy, the weakness has resolved and the patient is at her baseline. 3. Electrolyte abnormality: Magnesium was low on admission and repleted today , it is 1.9. I would encourage the patient to take magnesium [id number]. 4. Shortness of breath: The patient initially complained of shortness of breath on admission, but this has resolved. The patient is currently on 2 liters and O2 saturation is 99 percent. Two liters supplemental oxygen is the patient's home baseline. Due to shortness of breath, the patient did have an echo which revealed tricuspid regurgitation and pulmonary hypertension are worse from previous exam in 2015. I would encourage the patient to follow-up with her primary care provider and if she has a rabble furnace tender to follow-up with them as outpatient. If not, I would recommend that she is referred to a rabble furnace tender. 5. COPD: The patient has no evidence of exacerbation. The patient should continue home O2. 6. Dementia: The patient should continue Aricept. 7. Hypothyroid: The patient should continue her Levothyroxine. TSH while an inpatient was 0.72. 8. Arthritis/chronic pain: The patient should continue home meds the same. 9. Depression: The patient should continue her home meds the same and follow- up with primary care provider. 10. Lymphoma: This is a history of for patient, she should follow-up with her primary care provider as recommended. 11. Hypertension: The patient should continue her Norvasc as previously prescribed. 12. Education: The patient was educated on signs and symptoms of new or worsening condition and when to return to the emergency department. PLAN: This plan was discussed with my attending, Dr. Man, who agrees with my plan. TIME SPENT: Approximately 35 minutes were spent on this discharge, greater than half that time was spent [id number] with the patient discussing discharge plan and completing my assessment. LEYDA MAYO, MUNIR [id number]/CPS #: [id number]
[2018-10-01 14:35] VITALS: BP 147/60
== END 2018-10-01 14:30 | disposition home or self-care (01) | DRG 690 ==
LOC: ED 10:55 → MED 16:29
PROVIDERS: ADMIT Internal Medicine; ATTEND Internal Medicine
DX: N39.0 Urinary tract infection, site not specified (principal); C85.90 Non-Hodgkin lymphoma, unspecified, unspecified site; J96.11 Chronic respiratory failure with hypoxia; J44.9 Chronic obstructive pulmonary disease, unspecified; K44.9 Diaphragmatic hernia without obstruction or gangrene; M19.90 Unspecified osteoarthritis, unspecified site; M48.00 Spinal stenosis, site unspecified; H91.90 Unspecified hearing loss, unspecified ear; F03.90 Unspecified dementia, unspecified severity, without behavioral disturbance, psychotic disturbance, mood disturbance, and anxiety; E83.42 Hypomagnesemia; Z96.89 Presence of other specified functional implants; K59.00 Constipation, unspecified; I27.20 Pulmonary hypertension, unspecified; B95.2 Enterococcus as the cause of diseases classified elsewhere; B96.89 Other specified bacterial agents as the cause of diseases classified elsewhere; R79.89 Other specified abnormal findings of blood chemistry; I08.3 Combined rheumatic disorders of mitral, aortic and tricuspid valves; F32.9 Major depressive disorder, single episode, unspecified; R19.7 Diarrhea, unspecified; E03.9 Hypothyroidism, unspecified; I10 Essential (primary) hypertension; G89.29 Other chronic pain; Z88.8 Allergy status to other drugs, medicaments and biological substances; Z88.1 Allergy status to other antibiotic agents; Z88.2 Allergy status to sulfonamides; Z87.891 Personal history of nicotine dependence; Z80.8 Family history of malignant neoplasm of other organs or systems; Z72.89 Other problems related to lifestyle; Z79.82 Long term (current) use of aspirin; Z99.81 Dependence on supplemental oxygen
CPT/HCPCS: 36415; 71045; 80048; 80053; 81003; 81015; 82140; 82272; 82550; 83605; 83630; 83735; 83880; 84443; 84484; 85025; 85610; 85730; 86140; 87040; 87045; 87046; 87077; 87086; 87186; 87493; 87899; 93005; 93306; 99284; A9270-GY; G8978-GP-CK; G8979-GP-CI; J0696; J1644; J3475

== ENCOUNTER 2020-05-28 18:12 | Inpatient (IN) ==
[2020-05-28] MEDS ORDERED: Albuterol/Ipratropium NEB.SOL (2.5/0.5 MG) 3 ML NEB.SOLN INH PRN (21:05)
[2020-05-28 23:25] LABS: Hematocrit 39 % (35-47); Hemoglobin 13.3 g/dL (12.0-16.0); Mean Corpuscular HGB Conc 34 g/dL (31-36); Mean Corpuscular Hemoglobin 29 pg (27-31); Mean Corpuscular Volume 86 fL (80-97); Mean Platelet Volume 8.2 fL (7.4-10.4); Platelet Count 201 10^3/uL (150-450); Red Blood Count 4.56 10^6 /uL (3.70-4.87); Red Cell Distribution Width 15 % (10-15); White Blood Count 15.2 10^3/uL (3.5-10.8)
[2020-05-28 23:35] LABS: Activated Partial Thrombo Time 30.2 seconds (26.0-38.0); INR 1.48 (0.82-1.09)
[2020-05-28 23:44] LABS: Albumin 3.8 g/dL (3.2-5.2); Albumin/Globulin Ratio 1.5 (1-3); Calcium 9.5 mg/dL (8.6-10.3); EGFR African American 56.1 (>60); EGFR Non-African American 46.4 (>60); Globulin 2.5 g/dL (2-4); Total Bilirubin 0.8 mg/dL (0.2-1.0); Total Protein 6.3 g/dL (6.4-8.9)
[2020-05-28 23:45] LABS: Potassium 5.9 mmol/L (3.5-5.0)
[2020-05-29] MEDS ORDERED: metroNIDAZOLE IV 500 MG/100ML 500 MG/100 ML BAG IVPB SCH
[2020-05-29] MEDS: Heparin 5000 UNITS/ML 1 mL VIAL SUBCUT SCH ×2 (00:19→05:41)
[2020-05-29] MEDS: Amoxicillin/Clavul 875/125 TAB (Augmentin 875 tab) PO SCH ×2 (00:19→01:14)
[2020-05-29] MEDS ORDERED: Amoxicillin/Clavulan ORALSYR 80 MG/ML (400 MG/5 ML) PO SCH (01:00)
[2020-05-29] MEDS ORDERED: Metoclopramide 5 MG/ML VIAL (10 mg) IV SLOW PU ONE (01:32)
[2020-05-29] MEDS ORDERED: Patiromer POWDER 8.4 GM PAK PO ONE (01:53)
[2020-05-29] MEDS ORDERED: Furosemide 20 mg/2 ml IV VIAL IV ONE (03:14)
[2020-05-29] MEDS ORDERED: Piperacillin/Tazobac 3.375 GM BAG IV ONE (04:33)
[2020-05-29] MEDS ORDERED: Zosyn per Pharmacy NOTE FOLLOW UP SCH (05:00)
[2020-05-29] MEDS ORDERED: Piperacillin/Tazobactam VIAL 4.5 GM in NS 0.9% 100 ml BAG 100 ML IVPB ONE (05:00)
[2020-05-29 05:43] LABS: Hematocrit 37 % (35-47); Hemoglobin 12.4 g/dL (12.0-16.0); Mean Corpuscular HGB Conc 34 g/dL (31-36); Mean Corpuscular Hemoglobin 29 pg (27-31); Mean Corpuscular Volume 86 fL (80-97); Mean Platelet Volume 8.9 fL (7.4-10.4); Platelet Count 192 10^3/uL (150-450); Red Blood Count 4.27 10^6 /uL (3.70-4.87); Red Cell Distribution Width 16 % (10-15); White Blood Count 17.8 10^3/uL (3.5-10.8)
[2020-05-29 05:55] LABS: BUN/Creatinine Ratio 31.8 (8-20); Calcium 9.8 mg/dL (8.6-10.3); EGFR African American 58.6 (>60); EGFR Non-African American 48.4 (>60)
[2020-05-29 07:12] LABS: ABS Lymphocytes 0.5 10^3/ul (1.0-4.8); ABS Neutrophils 13.7 10^3/ul (1.5-7.7); Lymphocyte % 3.3 %
[2020-05-29 07:12] LABS: ABS Basophils 0.1 10^3/ul (0-0.2); ABS Lymphocytes 0.7 10^3/ul (1.0-4.8); ABS Monocytes 1.1 10^3/ul (0-0.8); ABS Neutrophils 15.9 10^3/ul (1.5-7.7)
[2020-05-29] MEDS ORDERED: Vancomycin 1,000 MG in NS 0.9% 250 ml 250 ML IVPB ONE (08:00)
[2020-05-29] MEDS: Aspirin EC 81 mg TAB.EC (enteric coated) PO SCH (08:35)
[2020-05-29] MEDS: Senna TAB 8.6 mg TAB PO SCH ×2 (08:36→22:33)
[2020-05-29] MEDS ORDERED: Furosemide 20 mg/2 ml IV VIAL IV SLOW PU ONE (09:00)
[2020-05-29] MEDS ORDERED: Furosemide 40 mg/4 ml IV VIAL IV SLOW PU ONE (09:00)
[2020-05-29] MEDS ORDERED: Senna TAB 8.6 mg TAB PO SCH (09:00)
[2020-05-29] MEDS ORDERED: Polyethylene Glycol 3350 17 GM PACKET PO ONE (09:00)
[2020-05-29] MEDS: ZOSYN 3.375 GM Q8H per EXTENDED INFUSION IV SCH ×2 (10:45→17:24)
[2020-05-29 11:41] LABS: Urine Appearance Cloudy; Urine Bilirubin Negative (Negative); Urine Blood 2+ (Negative); Urine Color Straw; Urine Glucose Negative (Negative); Urine Ketones Negative (Negative); Urine Nitrite Negative (Negative); Urine Protein Negative (Negative); Urine Specific Gravity 1.008 (1.010-1.030); Urine Urobilinogen Negative (Negative)
[2020-05-29 11:43] LABS: Urine Bacteria Absent (Absent); Urine Red Blood Cell 3+(>10/hpf) (Absent); Urine Squamous Epithelial Cell Present (Absent); Urine White Blood Cell Trace(0-5/hpf) (Absent)
[2020-05-29] MEDS ORDERED: NS 0.9% 1000 ml BAG 1,000 ML IV SCH (12:15)
[2020-05-29] MEDS: Enoxaparin 40 MG/0.4 ML SYR SUBCUT SCH (12:32)
[2020-05-29] MEDS ORDERED: Ondansetron 4 mg VIAL 2 MG/ML 2 ml VIAL IV PRN (20:05)
[2020-05-30] MEDS: ZOSYN 3.375 GM Q8H per EXTENDED INFUSION IV SCH ×3 (02:35→18:46)
[2020-05-30 08:53] LABS: ABS Neutrophils 10.7 10^3/ul (1.5-7.7); Hematocrit 35 % (35-47); Hemoglobin 12.1 g/dL (12.0-16.0); Lymphocyte % 7.6 %; Mean Corpuscular HGB Conc 34 g/dL (31-36); Mean Corpuscular Hemoglobin 30 pg (27-31); Mean Corpuscular Volume 86 fL (80-97); Mean Platelet Volume 8.6 fL (7.4-10.4); Platelet Count 171 10^3/uL (150-450); Red Blood Count 4.09 10^6 /uL (3.70-4.87); Red Cell Distribution Width 16 % (10-15); White Blood Count 12.6 10^3/uL (3.5-10.8)
[2020-05-30 09:11] LABS: BUN/Creatinine Ratio 47.9 (8-20); Calcium 8.6 mg/dL (8.6-10.3); EGFR Non-African American 75.2 (>60); Magnesium 1.7 mg/dL (1.9-2.7); Potassium 3.4 mmol/L (3.5-5.0)
[2020-05-30] MEDS ORDERED: Magnesium Sulfate 2 gm BAG 2 GM/50 ML BAG IVPB ONE (09:15)
[2020-05-30] MEDS: Senna TAB 8.6 mg TAB PO SCH ×2 (10:40→21:41)
[2020-05-30] MEDS ORDERED: Magnesium Hydroxide LIQ 30 ML UDC PO PRN (11:32)
[2020-05-30] MEDS: Enoxaparin 40 MG/0.4 ML SYR SUBCUT SCH (13:16)
[2020-05-31] MEDS: ZOSYN 3.375 GM Q8H per EXTENDED INFUSION IV SCH ×3 (02:10→17:31)
[2020-05-31 07:41] LABS: ABS Monocytes 0.7 10^3/ul (0-0.8); ABS Neutrophils 11.7 10^3/ul (1.5-7.7); Eosinophil % 0.2 %; Hematocrit 34 % (35-47); Hemoglobin 11.6 g/dL (12.0-16.0); Lymphocyte % 7.4 %; Mean Corpuscular HGB Conc 34 g/dL (31-36); Mean Corpuscular Hemoglobin 29 pg (27-31); Mean Corpuscular Volume 86 fL (80-97); Mean Platelet Volume 8.5 fL (7.4-10.4); Platelet Count 188 10^3/uL (150-450); Red Blood Count 3.96 10^6 /uL (3.70-4.87); Red Cell Distribution Width 16 % (10-15); White Blood Count 13.4 10^3/uL (3.5-10.8)
[2020-05-31 08:01] LABS: BUN/Creatinine Ratio 51.4 (8-20); Calcium 8.5 mg/dL (8.6-10.3); EGFR African American 95.6 (>60); Magnesium 2.2 mg/dL (1.9-2.7); Potassium 3.3 mmol/L (3.5-5.0)
[2020-05-31 09:47] LABS: % Iron Saturation 21 % (15-55); Iron 46 ug/dL (50-212); Total Iron Binding Capacity 214 mcg/dL (250-450); Transferrin 153 mg/dL (203-362); Unsaturated Iron Binding < 199 ug/dL
[2020-05-31 09:58] LABS: Ferritin 108.4 ng/mL (11-307)
[2020-05-31] MEDS: KCL 20 MEQ/100 ML IVPREMIX 20 MEQ/100 ML BAG IV SCH ×2 (11:15→14:26)
[2020-05-31] MEDS: Senna TAB 8.6 mg TAB PO SCH ×2 (11:25→20:52)
[2020-05-31] MEDS: Aspirin EC 81 mg TAB.EC (enteric coated) PO SCH (11:25)
[2020-05-31] MEDS: Enoxaparin 40 MG/0.4 ML SYR SUBCUT SCH (11:29)
[2020-06-01] MEDS: ZOSYN 3.375 GM Q8H per EXTENDED INFUSION IV SCH ×3 (02:35→17:06)
[2020-06-01 08:16] LABS: BUN/Creatinine Ratio 44.1 (8-20); Calcium 8.3 mg/dL (8.6-10.3); EGFR African American 116.4 (>60); EGFR Non-African American 96.2 (>60)
[2020-06-01 08:21] LABS: ABS Eosinophils 0.2 10^3/ul (0-0.6); ABS Lymphocytes 1.2 10^3/ul (1.0-4.8); ABS Monocytes 0.9 10^3/ul (0-0.8); ABS Neutrophils 10.4 10^3/ul (1.5-7.7); Eosinophil % 1.4 %; Hematocrit 36 % (35-47); Hemoglobin 12.3 g/dL (12.0-16.0); Lymphocyte % 9.3 %; Mean Corpuscular HGB Conc 34 g/dL (31-36); Mean Corpuscular Hemoglobin 30 pg (27-31); Mean Corpuscular Volume 87 fL (80-97); Mean Platelet Volume 8.4 fL (7.4-10.4); Platelet Count 197 10^3/uL (150-450); Red Blood Count 4.17 10^6 /uL (3.70-4.87); Red Cell Distribution Width 15 % (10-15); White Blood Count 12.7 10^3/uL (3.5-10.8)
[2020-06-01] MEDS: Senna TAB 8.6 mg TAB PO SCH ×2 (09:49→20:56)
[2020-06-01] MEDS: Enoxaparin 40 MG/0.4 ML SYR SUBCUT SCH (12:35)
[2020-06-02] MEDS: ZOSYN 3.375 GM Q8H per EXTENDED INFUSION IV SCH ×2 (02:07→10:14)
[2020-06-02] MEDS: Senna TAB 8.6 mg TAB PO SCH (10:13)
[2020-06-02] MEDS: Aspirin EC 81 mg TAB.EC (enteric coated) PO SCH (12:03)
[2020-06-02] MEDS: Enoxaparin 40 MG/0.4 ML SYR SUBCUT SCH (14:04)
[2020-06-02 16:03] VITALS: BP 145/72
== END 2020-06-02 16:45 | disposition swing bed (61) | DRG 871 ==
LOC: ED 18:12 → MED 21:05
PROVIDERS: ADMIT Hospitalist; ATTEND Internal Medicine